=== PATIENT | female | born 1995 | race African-American/Black ===

== ENCOUNTER 2020-12-02 10:07 | Day surgery (SDC) | payer OTHER ==
[2020-12-02 10:23] VITALS: BMI 38.2
[2020-12-02] MEDS ORDERED: SODIUM CHLORIDE 0.9% 500 ML INFUS.BAG IV ONE ×2 (10:47→16:22)
[2020-12-02 11:38] LABS: BASO % 0.5 % (0-2.0); EOS % 1.2 % (0-4.5); HEMATOCRIT 37.4 % (32.4-45.2); HEMOGLOBIN 12.8 GM/dL (10.7-15.3); LYMPH % 14.2 % (8-40); MCH 27.9 pg (25.7-33.7); MCHC 34.2 g/dl (32.0-36.0); MEAN CELL VOLUME 81.6 fl (80-96); MEAN PLT VOLUME 8.7 fl (7.5-11.1); NEUT % 80.1 % (42.8-82.8); PLATELET COUNT 308 10^3/uL (134-434); RBC 4.58 M/mm3 (3.60-5.2); RDW 14.3 % (11.6-15.6); WHITE BLOOD COUNT 16.6 K/mm3 (4.0-10.0)
[2020-12-02 11:59] LABS: CALCIUM 8.8 mg/dL (8.5-10.1)
[2020-12-02 12:00] LABS: ALBUMIN 3.4 g/dl (3.4-5.0); BLOOD UREA NITROGEN 7.4 mg/dL (7-18)
[2020-12-02 12:03] LABS: CREATININE 0.8 mg/dL (0.55-1.3)
[2020-12-02 12:05] LABS: BILIRUBIN,TOTAL 1.3 mg/dL (0.2-1); TOT PROT 7.4 g/dl (6.4-8.2)
[2020-12-02 13:37] LABS: EPI CELLS 8 /uL (0-25.1); HYALINE CASTS 0 /uL (0-3.1); URINE APPEARANCE CLEAR; URINE BACTERIA 350 /uL (0-1359); URINE BILIRUBIN NEGATIVE (NEGATIVE); URINE COLOR YELLOW; URINE GLUCOSE (UA) NEGATIVE (NEGATIVE); URINE KETONE TRACE (NEGATIVE); URINE LEUK ESTERASE NEGATIVE (NEGATIVE); URINE NITRITE NEGATIVE (NEGATIVE); URINE PROTEIN NEGATIVE (NEGATIVE); URINE WBC 15 /uL (0-25.8)
[2020-12-02 13:38] LABS: URINE RBC 49.5 /uL (0-23.9)
[2020-12-02] MEDS ORDERED: morphine CARPU-JECT 4 MG/1 ML DISP.SYRIN IVPUSH ONE (15:08)
[2020-12-02] MEDS ORDERED: morphine SULFATE 4 MG/ML VIAL ONE (15:51)
[2020-12-02] MEDS ORDERED: ONDANSETRON 4 MG/2 ML VIAL IVPB ONE (16:34)
[2020-12-02] MEDS ORDERED: ACETAMINOPHEN 1000 MG/100 ML VIAL (NON FORMULARY) IVPB ONE (16:34)
[2020-12-02] MEDS ORDERED: ACETAMINOPHEN INJECTION 100 ML IVPB ONE (17:16)
[2020-12-02] MEDS ORDERED: ONDANSETRON 4 MG/2 ML VIAL ONE (17:16)
[2020-12-02] MEDS ORDERED: PIPERACILLIN/TAZOB 4.5 GM 4.5 GM in DEXTROSE 5%-WATER 100 ML IVPB ONE (18:53)
[2020-12-02] MEDS ORDERED: PIPERACILLIN/TAZOB 4.5 GM 4.5 GM/100 ML BAG IVPB ONE (19:02)
[2020-12-02] MEDS ORDERED: SODIUM CHLORIDE 1,000 ML IV SCH (19:15)
[2020-12-02] MEDS ORDERED: CEFTRIAXONE 1 GM in DEXTROSE 5%-WATER - 50 ML IVPB SCH (20:45)
[2020-12-02] MEDS ORDERED: MORPHINE SULFATE 2 MG/ML VIAL IVPUSH PRN (20:53)
[2020-12-02] MEDS ORDERED: ONDANSETRON 4 MG/2 ML VIAL IVPUSH PRN (21:00)
[2020-12-02] MEDS ORDERED: CEFTRIAXONE 1 GM/50 ML BAG ONE (21:21)
[2020-12-02] MEDS: ACETAMINOPHEN 325 MG TABLET (FP) PO PRN (21:54)
[2020-12-03] MEDS ORDERED: ACETAMINOPHEN 325 MG TABLET (FP) ONE (03:19)
[2020-12-03] MEDS: ACETAMINOPHEN 325 MG TABLET (FP) PO PRN ×2 (04:27→18:29)
[2020-12-03] MEDS ORDERED: DEXAMETHASONE SOD PHOSPHATE 4 MG/1 ML VIAL ONE (07:12)
[2020-12-03] MEDS ORDERED: LIDOCAINE HCL/PF 2% SDV 5ML VIAL ONE (07:12)
[2020-12-03] MEDS ORDERED: MIDAZOLAM HCL 2 MG/2 ML SINGLE DOSE VIAL ONE (07:13)
[2020-12-03] MEDS ORDERED: SUCCINYLCHOLINE CHLORIDE 200 MG/10 ML SYRINGE ONE (07:13)
[2020-12-03] MEDS ORDERED: ROCURONIUM BROMIDE 50 MG/5 ML SYRINGE ONE (07:13)
[2020-12-03] MEDS ORDERED: PROPOFOL 20 ML ONE (07:13)
[2020-12-03] MEDS ORDERED: BUPIVACAINE HCL/PF 0.5% (5MG/ML) 10 ML VIAL ONE (07:29)
[2020-12-03 08:25] LABS: HEMATOCRIT 34.5 % (32.4-45.2); HEMOGLOBIN 11.7 GM/dL (10.7-15.3); MCHC 33.9 g/dl (32.0-36.0); MEAN CELL VOLUME 82.5 fl (80-96); MEAN PLT VOLUME 9.1 fl (7.5-11.1); PLATELET COUNT 261 10^3/uL (134-434); RBC 4.18 M/mm3 (3.60-5.2); RDW 14.3 % (11.6-15.6); WHITE BLOOD COUNT 7.5 K/mm3 (4.0-10.0)
[2020-12-03 08:31] LABS: INR 1.05 (0.83-1.09); PROTHROMBIN TIME (PATIENT) 12.7 SEC (9.7-13.0)
[2020-12-03 08:34] LABS: ACTIVATED PTT 29.1 SECONDS (25.2-36.5)
[2020-12-03 08:44] LABS: CALCIUM 7.7 mg/dL (8.5-10.1)
[2020-12-03 08:45] LABS: BLOOD UREA NITROGEN 4.8 mg/dL (7-18); MAGNESIUM 2.2 mg/dL (1.8-2.4)
[2020-12-03 08:48] LABS: CREATININE 0.7 mg/dL (0.55-1.3)
[2020-12-03 08:49] LABS: PHOSPHOROUS 2.7 mg/dL (2.5-4.9)
[2020-12-03] MEDS ORDERED: GLYCOPYRROLATE 0.2 MG/1 ML VIAL ONE (09:11)
[2020-12-03] MEDS ORDERED: NEOSTIGMINE METHYLSULFATE 0.5 MG/ML - 10 ML MDV ONE (09:11)
[2020-12-03] MEDS ORDERED: KETOROLAC TROMETHAMINE 30 MG/1 ML VIAL ONE (09:11)
[2020-12-03] MEDS ORDERED: BUPIVACAINE HCL/PF 0.5% (5 MG/ML) 30 ML VIAL IJ ONE (09:16)
[2020-12-03] MEDS ORDERED: oxyCODONE HCL 5 MG TABLET PO PRN ×2 (09:36)
[2020-12-03] MEDS ORDERED: ONDANSETRON 4 MG/2 ML VIAL IVPUSH PRN (09:41)
[2020-12-03] MEDS: SODIUM CHLORIDE 1,000 ML IV SCH (11:23)
[2020-12-03] MEDS: MORPHINE SULFATE 2 MG/ML VIAL IVPUSH PRN ×2 (11:24→21:57)
[2020-12-03] MEDS: LACTATED RINGERS SOLUTION 1,000 ML IV SCH (22:30)
[2020-12-04] MEDS: SODIUM CHLORIDE 1,000 ML IV SCH ×2 (06:11→10:02)
[2020-12-04] MEDS: ACETAMINOPHEN 325 MG TABLET (FP) PO PRN ×2 (07:55→13:35)
[2020-12-04 09:13] LABS: BASO % 0.2 % (0-2.0); EOS % 0.1 % (0-4.5); HEMATOCRIT 33.8 % (32.4-45.2); HEMOGLOBIN 11.2 GM/dL (10.7-15.3); LYMPH % 13.2 % (8-40); MCH 27.6 pg (25.7-33.7); MCHC 33.3 g/dl (32.0-36.0); MEAN PLT VOLUME 9.8 fl (7.5-11.1); MONO % 3.4 % (3.8-10.2); NEUT % 83.1 % (42.8-82.8); PLATELET COUNT 266 10^3/uL (134-434); RBC 4.07 M/mm3 (3.60-5.2); RDW 14.4 % (11.6-15.6); WHITE BLOOD COUNT 14.9 K/mm3 (4.0-10.0)
[2020-12-04 09:49] LABS: BLOOD UREA NITROGEN 5.4 mg/dL (7-18); CALCIUM 8.1 mg/dL (8.5-10.1)
[2020-12-04 09:50] LABS: ALBUMIN 2.9 g/dl (3.4-5.0)
[2020-12-04 09:52] LABS: CREATININE 0.7 mg/dL (0.55-1.3)
[2020-12-04 09:53] LABS: BILIRUBIN,TOTAL 0.7 mg/dL (0.2-1)
[2020-12-04 09:54] LABS: TOT PROT 6.5 g/dl (6.4-8.2)
[2020-12-04] MEDS: LACTATED RINGERS SOLUTION 1,000 ML IV SCH (10:02)
[2020-12-04 14:01] VITALS: BP 139/72; PULSE 67; TEMP 98.6
== END 2020-12-04 14:03 | disposition home or self-care (01) ==
LOC: JER 10:07 → SUATTDRO 19:09 → JERBED 19:09 → JASUSAT 19:09 → UNDOADMIN 19:09 → JERBED 12-03 07:23 → J7W 12-03 07:23 → JASUSAT 12-04 14:03
PROVIDERS: ATTEND Nurse Practitioner Acute Care
PROC: 0DTJ4ZZ Resection of Appendix, Percutaneous Endoscopic Approach (ICD-10-PCS; principal; 2020-12-02)
PROC: 3E033GC Introduction of Other Therapeutic Substance into Peripheral Vein, Percutaneous Approach (ICD-10-PCS; 2020-12-02)
DX: K35.80 Unspecified acute appendicitis (principal)
CPT/HCPCS: 36415; 74177-TC; 80048; 80053; 81003; 82962; 83735; 84100; 84703; 85025; 85027; 85610; 85730; 86850; 86900; 86901; 87086; 88304-TC; 93005; 93010; 94760; 99285-25; C9803; J0131; Q9967; U0003; U0005

== ENCOUNTER 2021-03-28 11:08 | Emergency (ER) | payer OTHER ==
[2021-03-28 11:25] VITALS: TEMP 98.1; BMI 37.0
[2021-03-28 13:53] VITALS: BP 129/85; PULSE 74
== END 2021-03-28 13:54 | disposition home or self-care (01) ==
LOC: JER 11:08
DX: G44.209 Tension-type headache, unspecified, not intractable (principal)
CPT/HCPCS: 70450-TC; 99284-25; C9803; U0003; U0005

== ENCOUNTER 2021-09-23 16:43 | Emergency (ER) | payer OTHER ==
[2021-09-23 17:14] VITALS: BP 147/86; PULSE 68; TEMP 98.6; BMI 38.2
== END 2021-09-23 19:05 | disposition home or self-care (01) ==
LOC: JERFT 16:43
DX: H57.13 Ocular pain, bilateral (principal)
CPT/HCPCS: 71046-TC-FY; 99283-25